=== PATIENT | male | born 1975 | race Hispanic/Latino ===

== ENCOUNTER → 2025-07-29 | Outpatient (CLI) | payer OTHER ==
--- NOTE | 2025-07-30 08:28 | HMCIMG ---
EXAM: CT Coronary Calcium Scoring CLINICAL HISTORY: Assessment of coronary artery calcification and cardiovascular risk. TECHNIQUE: Non-contrast, ECG-gated computed tomography scan of the heart was performed. Coronary calcium scoring was calculated using the Agatston method with a threshold of 130 Hounsfield Units (HU). FINDINGS: No calcified atherosclerotic plaques are identified in any of the coronary arteries. The left main (LM), left anterior descending (LAD), left circumflex (LCX), and right coronary artery (RCA) all demonstrate no measurable calcification. The total Agatston calcium score is 0.0. No identifiable coronary calcification is noted in any coronary distribution. IMPRESSION: Total Agatston calcium score: 0.0 No identifiable coronary artery calcification seen in any coronary segment. Findings correspond to coronary age <35 years, indicating very low atherosclerotic burden and low risk for coronary artery disease. /[place]
== END | disposition home or self-care (01) ==
LOC: RAH 14:27
PROVIDERS: ATTEND Internal Medicine
DX: Z13.6 Encounter for screening for cardiovascular disorders (principal)
CPT/HCPCS: 75571